=== PATIENT | male | born 1950 | race Caucasian/White ===

== ENCOUNTER 2019-03-30 11:02 | Outpatient (CLI) | payer MEDICARE, SELFPAY ==
[2019-03-30 11:47] LABS: Abs Immature Grans 0.28 k/cumm (0.0-0.09); Absolute Basophil Count 0.01 k/cumm (0.0-0.2); Absolute Eosinophil Count 0.07 k/cumm (0.0-0.7); Absolute Lymphocyte Count 1.59 k/cumm (1.2-3.4); Absolute Monocyte Count 0.59 k/cumm (0.11-0.7); Absolute Neutrophil Count 10.58 k/cumm (1.2-6.7); Basophils % 0.1; Eosinophils % 0.5; HCT 33.6 % (40.0-50.0); Immature Grans % 2.1 %; Lymphocytes % 12.1; Mean Corp. HGB Concentration 29.8 g/dL (32.0-36.0); Mean Corpuscular Hemoglobin 24.2 pg (27.0-33.0); Mean Corpuscular Volume 81.4 fL (80-95); Mean Platelet Volume 10.4 fL (8.0-11.0); Monocytes % 4.5; Neutrophils % 80.7; Platelet Count 365 x1000/uL (130-400); RBC 4.13 m/cumm (4.50-6.00); RBC Distribution Width 18.7 % (11.8-14.1); White Blood Cell Count 13.11 k/cumm (4.4-10.8)
[2019-03-30 12:06] LABS: Anion Gap 8.3 mmol/L (3-11); BUN 21 mg/dL (7-18); CO2 31.7 mmol/L (21.0-32.0); CREATININE 1.05 mg/dL (0.70-1.30); Calcium 8.8 mg/dL (8.5-10.1); Chloride 104 mmol/L (98-107); Glucose 75 mg/dL (74-106); Sodium 144 mmol/L (136-145)
== END 2019-03-30 11:22 ==
PROVIDERS: Visit Provider Nurse Practitioner Adult Health
DX: L03.116 Cellulitis of left lower limb (principal); A49.1 Streptococcal infection, unspecified site; N20.0 Calculus of kidney
CPT/HCPCS: 36415; 80048; 85025